=== PATIENT | female | born 1950 | race Caucasian/White ===

== ENCOUNTER → 2018-04-08 18:10 | Outpatient (REF) | payer MEDICARE, OTHER, SELFPAY | LOC: LAB 18:10 | PROVIDERS: Family Provider Family Medicine Geriatric Medicine; PCP Family Medicine Geriatric Medicine; Visit Provider Orthopaedic Surgery | DX: M17.11 Unilateral primary osteoarthritis, right knee (principal); Z53.8 Procedure and treatment not carried out for other reasons ==

== ENCOUNTER 2022-09-15 09:08 | Day surgery (SDC) | payer MEDICARE, OTHER, SELFPAY ==
[2022-09-07 09:58] VITALS: BMI 19.1
[2022-09-15] VITALS (11 sets, daily range): BP systolic 94–131; BP diastolic 53–66; PULSE 52–75; RESP 11–28; TEMP 36.2–36.7; O2SAT 15–100; BMI 19.1
[2022-09-15 09:48] LABS: COVID19 -Nasal RAPID Negative (Negative)
[2022-09-15] MEDS: CELECOXIB 200 MG CAPSULE PO (09:52)
[2022-09-15] MEDS: PREGABALIN 75 MG CAPSULE PO (09:53)
[2022-09-15] MEDS: ACETAMINOPHEN 325 MG TABLET 975 MG PO (09:53)
[2022-09-15] MEDS: VANCOMYCIN 1,000 MG/200 ML PIGGYBACK 200 MG IV (09:58)
[2022-09-15] MEDS: LACTATED RINGERS 1,000 ML 42 ML IV (10:00)
--- NOTE | 2022-09-15 10:46 | PM.PREOP ---
Pre-operative Note COVID-19 COVID-19 status: Negative Interval Note History & Physical reviewed/Exam performed by Physician: Yes Changes to H&P: No
--- NOTE | 2022-09-15 10:46 | PM.OP.1 ---
Operative Date/Time/Diagnoses Date of procedure: 09/15/22 Time of procedure: 10:46 Pre-op diagnosis: Severe right knee OA Post-op diagnosis: same Procedure & Clinicians Procedure: Right total knee arthroplasty Same procedure as scheduled: Yes Indications: The patient has had progressively worsening right knee pain with radiographic changes consistent with arthritis. Non-operative management has failed and the patient has requested total knee replacement. The risks, benefits and alternatives to surgery were discussed with the patient prior to proceeding. Risks discussed included, but were not limited to, failure to relieve pain, stiffness, infection, nerve damage, deep venous thrombosis, pulmonary embolism, stroke, coma, heart attack, permanent paralysis and , as well as the potential need for eventual revision of the prosthetic. Surgeon: Sheyla Hodgse Fiberglass Tube Molder: Mina Ortiz Anesthesia Type: Spinal Operative Notes Findings: Severe right knee osteoarthritis, adequate stability good range of motion Closure Type: primary Specimen(s): none sent Prosthetic devices, grafts, tissues, transplants, or devices: [facility] [employer] [facility] BCS 2 size 4 femur, size 3 tibia, +9 poly, 32 x 7-1/2 mm patella Estimated Blood Loss (mL): 250 Blood products transfused: none Tourniquet time (min): 64 Procedure in detail: The patient was seen in the pre-operative area, where the patient identified the right knee as the operative site and this was marked with my initials. The patient received pre-operative antibiotics, and was taken to the operating room and placed on the operative table in the supine position. After satisfactory anesthesia, a full time staff interpreter out was performed. The right leg was encircled with a tourniquet about the proximal thigh, and the leg was prepared from the toes to the tourniquet with ChloroPrep in the usual fashion and draped through sterile drapes. The leg was elevated and exsanguinated with Eschmark bandage and the tourniquet inflated to [250] mmHg pressure. The knee was approached through an approximately 18 cm incision centered over the patella and carried into the knee through a medial parapatellar arthrotomy. A portion of the medial and lateral meniscus was resected. Soft tissue was carefully mobilized around the patella the patella was measured with a caliper. Bone was resected from the patella and the patellar height was reconstituted with up an appropriate sized patellar component. A cover was then placed on the patella. A small amount of additional medial and lateral meniscus was resected. The distal femur was cut at 5?. A [+2] cut was used. It looked like an appropriate distal femoral cut and the cut was made without difficulty. An extramedullary guide was used for the tibial cut. 10 mm was resected off the least affected side.The tibia was prepared. The rotation was assessed. The patient was placed in extension residual medial and lateral meniscus as well as any residual bone was carefully resected. [No] additional tibia was resected. Hemostasis was achieved especially posteriorly. Additional local was injected into the posterior capsule. The extension gap was assessed and additional releases for gap balancing were performed as necessary. It was checked with the gap supervisor inspection department. The femoral component was trial was placed and the notch was finished. The rotation was assessed and the appropriate size femoral guide was placed on the distal femur and finishing cuts were made. There was no evidence of notching. The anterior, posterior and chamfer cuts were then made. The posterior osteophytes and soft tissues were then removed. The posterior capsule was injected with part of a mixture of 60 ml 0.25% Marcaine mixed with 20 ml Exparel for post operative pain control. The remainder of this mixture was injected into the capsule and subcutaneous tissues during cement curing. The tibial and femoral components were then placed and the knee placed through a range of motion. Range of motion was [0-130], with good stability throughout the range. The trials were then removed, and the tibia was finished. The bone was prepared with pulsatile lavage, and dried with a sponge. Cement was applied and the final prosthetics placed. Excess cement was removed during and after cement curing. A brief Betadine soak was performed. After confirming there was no extruded cement posteriorly, the final tibial insert was placed. The knee was copiously irrigated and the tourniquet deflated. Hemostasis was obtained with the bovie. A drain was placed and brought out superolaterally. The capsule was closed with interrupted nonabsorbable suture. The subcutaneous layer was closed with barbed sutures, and the skin with a running 3-0 V-Lock suture and Surgical glue. An Aquacel Ag dressing was applied and the patient was taken to recovery having tolerated the procedure well. Complications: none Post-operative Condition: stable Disposition: Acute Care Plan for aftercare: The patient will be maintained on a standard total knee replacement protocol with weight bearing as tolerated. The patient will receive aspirin and sequential compression devices for DVT prophylaxis. The patient will be discharged home when safe for the home environment.
[2022-09-15] MEDS: CEFAZOLIN 2 GM/100 ML PREMIX 100 ML IV ×2 (10:54→20:08)
[2022-09-15] MEDS: TRANEXAMIC ACID 1,000 MG VIAL 1000 MG INJ ×2 (11:11→12:35)
--- NOTE | 2022-09-15 11:30 | DI.RAD.S_ITS ---
PROCEDURE: XR KNEE RT 1TO2V INDICATIONS: RIGHT TOTAL KNEE TECHNIQUE: 2 view(s) of the knee acquired. COMPARISON: None. FINDINGS: Bones: Patient is status post knee joint arthroplasty. Hardware components are in expected positions. Visualized bony structures are intact. Soft tissues: Overlying postoperative changes are noted. IMPRESSION: Expected postsurgical change for right knee arthroplasty. Dictated by: Portia Starks MD, PhD on 09/15/2022 at 13:58 Approved by: Portia Starks MD, PhD on 09/15/2022 at 13:59
--- NOTE | 2022-09-15 11:30 | SUR.OPER ---
Supine on padded OR bed. Pillow under head, arms secured on padded armboards <90 degree abduction. Safety belt across torso. Non-operative leg secured with tape over blanket over lower leg. Operative leg secured in DeMayo positioner. Foam padded brace at thigh of operative leg.
[2022-09-15] MEDS: BUPIVACAINE LIPOSOME 266 MG/20 ML VIAL INJ (11:36)
[2022-09-15] MEDS: SODIUM CHLORIDE IRRIG SOLUTION 250 ML, POVIDONE-IODINE SPONGE STICKS 1 APPLIC IRR (11:36)
[2022-09-15] MEDS: BUPIVACAINE 0.5% W/ EPI (PF) 30 ML VIAL INJ (11:38)
[2022-09-15] MEDS: ONDANSETRON 4 MG/2 ML INJ IV (13:04)
[2022-09-15] MEDS: OXYCODONE IR 5 MG TABLET PO (13:04)
[2022-09-15] MEDS: LACTATED RINGERS 1,000 ML 100 ML IV (14:03)
[2022-09-15] MEDS: IBUPROFEN 400 MG TABLET PO ×3 (14:03→20:08)
--- NOTE | 2022-09-15 14:32 | PC.NURSE ---
Addendum entered by Ailyn Wright R.N. 09/15/22 14:45: Bed alarm on for safety. Pt aware she must call for assistance as needed and to not get up without assistance. Original Note: Pt to room 219 via bed from PACU. Pt is awake, alert, and oriented x 4. O2 sat 99% on RA and continuous pulse ox in place (Pt has Raynauds and has trouble with the sensor at times.) Pt states pain is 3/10 to right knee - had just received pain meds prior to transport up from PACU. SCD's on and running, IVF infusing as ordered, ice pack in place under knee. Oriented Pt to room, call light, bed controls, and tv controls.
[2022-09-15] MEDS: ACETAMINOPHEN 325 MG TABLET 650 MG PO (17:14)
[2022-09-15] MEDS: ASPIRIN EC 81 MG TABLET PO (20:08)
[2022-09-15] MEDS: DOCUSATE 100 MG CAPSULE PO (20:08)
[2022-09-16] VITALS: BP 99/51; PULSE 61; RESP 12; TEMP 37; O2SAT 97
[2022-09-16] MEDS: ACETAMINOPHEN 325 MG TABLET 650 MG PO ×2 (00:03→05:32)
[2022-09-16] MEDS: IBUPROFEN 400 MG TABLET PO ×3 (00:03→08:40)
[2022-09-16] MEDS: LACTATED RINGERS 1,000 ML 100 ML IV (03:05)
[2022-09-16] MEDS: CEFAZOLIN 2 GM/100 ML PREMIX 100 ML IV (03:05)
[2022-09-16 03:10] VITALS: BP 103/52; PULSE 64; RESP 18; TEMP 36.9; O2SAT 97
[2022-09-16 06:16] LABS: Hematocrit 29.1 % (36-46); Hemoglobin 9.8 g/dL (12.0-16.0)
--- NOTE | 2022-09-16 07:49 | P.DS_ITS ---
History of Present Illness History of Present Illness Date Patient Seen: 09/16/22 Time Patient Seen: 07:49 Chief complaint: Knee pain Narrative: Patient's knee pain is been [id number]. Denies fever or chills. No nausea or vomiting. Patient has her home to assist her. Discharge Providers Provider Discharge Date: 09/16/22 Primary care physician: Darnell Spears MD Consults: 09/15/22 08:01 Consult to Anesthesiology Routine Comment: Consulting Provider: Anesthesiologist Reason for consultation: Regional block for post operative pain control 09/15/22 13:17 Consult to Discharge Planning Routine Comment: Consult to Physical Therapy Evaluate & Treat Comment: Physician Instructions: postop TKA protocol Consult to Respiratory Therapy Evaluate & Treat Comment: Physician Instructions: Evaluate and treat Discharge provider: Mina Ortiz PA-C Summary Hospital Course Discharge Diagnosis: Severe right knee osteoarthritis Hospital Course: Right total knee arthroplasty Same procedure as scheduled: Yes Indications: The patient has had progressively worsening right knee pain with radiographic changes consistent with arthritis. Non-operative management has failed and the patient has requested total knee replacement. The risks, benefits and alternatives to surgery were discussed with the patient prior to proceeding. Risks discussed included, but were not limited to, failure to relieve pain, stiffness, infection, nerve damage, deep venous thrombosis, pulmonary embolism, stroke, coma, heart attack, permanent paralysis and , as well as the potential need for eventual revision of the prosthetic. Surgeon: Sheyla Hodges Quarrying Specialist: Mina Ortiz Anesthesia Type: Spinal Operative Notes Findings: Severe right knee osteoarthritis, adequate stability good range of motion Closure Type: primary Specimen(s): none sent Prosthetic devices, grafts, tissues, transplants, or devices: [employer] BCS 2 size 4 femur, size 3 tibia, +9 poly, 32 x 7-1/2 mm patella Estimated Blood Loss (mL): 250 Blood products transfused: none Tourniquet time (min): 64 Patient admitted to the hospital for right total knee arthroplasty. Patient consented to the same. Patient underwent right total knee arthroplasty on 2021. Patient back in her room recovering well as in stable condition. Patient will be discharged home today in stable condition. Status at Discharge Cognitive/behavioral status at discharge: at baseline, oriented Functional status at discharge: uses cane/walker Overall status at discharge: patient is progressing back to baseline Time Spent with Patient Time spent: Less than 30 minutes Exam Vital Signs (past 8 hours): - 09/16/22 00:00 09/16/22 03:10 Temperature 98.6 F 98.4 F Pulse Rate 61 64 Respiratory Rate 12 18 Blood Pressure 99/51 L 103/52 L Pulse Oximetry 97 97 Oxygen Flow Rate 0 0 Oxygen Delivery Method Room Air Oxygen Flow Rate 0 Narrative Exam Narrative: 72-year-old female resting comfortably in bed in no apparent distress. Right knee dressing is clean, dry and intact. Motor functions intact right lower extremity. Sensation grossly intact to light touch right lower extremity. Const General: cooperative, healthy appearing and comfortable Nutritional Appearance: average body habitus Orientation: alert HENMT Head: normal to inspection Resp Effort & Inspection: normal respiratory effort and able to speak in complete sentences Objective Labs Result Diagrams: 09/16/22 05:48 Labs: Laboratory Results - last 24 hr 09/15/22 09/16/22 09:15 05:48 Hgb 9.8 L Hct 29.1 L SARS-CoV-2 (PCR) Negative [facility] Medical History Anxiety Elevated cholesterol Osteoarthritis Raynaud's disease Vertigo Surgical History Hx of arthroscopy of right knee Hx of oral surgery (2006) Hx of removal of cyst Hx of removal of cyst Social History household members: spouse Smoking Status: Former smoker alcohol intake: former Discharge Assessment & Plan Assessment and Plan Assessment: Patient progressing as expected status post right total knee arthroplasty Plan of Treatment: Mobilize with physical therapy Multimodal pain management Discharge home today in stable condition Discharge Plan Discharge Plan Patient Disposition: Home Discharge orders & Medications Discharge Orders: Discharge (Order); Ordered 09/16/22 Ordered By: Mina Ortiz Prescriptions: New acetaminophen 325 mg Tablet 650 mg PO Q6HR Qty: 60 0RF polyethylene glycol 3350 17 gram Powder In Packet 17 gm PO DAILY PRN (Reason: Constipation) Qty: 20 0RF aspirin 81 mg Tablet,Delayed Release (Dr/Ec) 81 mg PO BID Qty: 60 0RF ibuprofen 400 mg Tablet 400 mg PO Q4HR Qty: 60 0RF oxycodone 5 mg Tablet 5 mg PO Q3HR PRN (Reason: Pain, Moderate (4-6)) Qty: 60 0RF Discontinued ibuprofen 200 mg Tablet 200 mg PO BID PRN (Reason: Pain) Follow up/Referrals: Darnell Spears MD [Primary Care Provider] - Sheyla Hodges MD [Physician] - (2 weeks) Diet/Activity/Treatments Diet: Diet as Tolerated Activity: Weight-bearing as tolerated Cold/Heat Therapy: Apply ice to knee as needed Skin/Wound/Dressing Care Report to your healthcare provider any signs of infection, such as:: chills, fever, night sweats, increased pain, unusual drainage and unusual redness Dressing: Keep dressing clean and dry, may shower Visit Report/Discharge Packet Instructions: DI for Knee Replacement Stand Alone Forms: Surgery Discharge Discharge Data Primary Care Provider: Darnell Spears Attending Provider: Sheyla Hodges Quality VTE Deep Vein Thrombosis/Pulmonary Embolism Present on Admission: No
[2022-09-16 08:05] VITALS: BP 114/44; PULSE 50; RESP 15; TEMP 36.9; O2SAT 98
--- NOTE | 2022-09-16 08:38 | CM.DANOTE ---
DCP Assessment: Payor confirmed: Medicare & [facility] PPO PCP confirmed: Darnell Spears MD Pt is a 72 y.o. F who presented to the hospital for a scheduled R TKA. Pt brought up to AC unit for further management and evaluation of surgical procedure. DCP met with pt this morning to discuss discharge needs. Pt sitting up in chair eating breakfast. DCP introduced herself and role. Pt states she lives in [place] with her spouse, Bucky, in a house with many steps. Pt states that she has set up a respit room at an assisted living facility on Wednesday while she recovers from surgery. Pt states that she will have 24/7 assistance and a button she can push if she needs something. Pt states that her spouse is 14 years older than her and unable to fully assisted her at home. Pt states that she is normally active at baseline and still does pilates classes. Pt drives POV normally and denies DME use. Pt aware she needs to work with PT upon discharge. Pt states [place]. Pt denies any resources or needs at this time. White board was updated. Pt thankful for discussion. P: Pt to work with PT this morning and if cleared, pt to discharge home to [facility] via spouse POV. Megan Salvador RN/DAWSON Discharge Planning/Care Management Advanced directive, confirm from FAMILY Start: 09/15/22 13:54 Freq: Q24H Status: Active Protocol: Document 09/15/22 13:54 CM (Rec: 09/15/22 13:58 CM [id number]) Advance Directive, confirm on record Time 13:58 Person contacted Pt Copy received No CM Discharge Assessment Start: 09/16/22 08:36 Freq: Status: Active Protocol: Document 09/16/22 08:37 AJ (Rec: 09/16/22 08:37 AJ [id number]) Discharge Planning Assessment Assigned Aviation Safety Inspector Megan Salvador RN/DAWSON Advance Directives? Yes Advance Directives on File No History Provided By Patient Prior Living Arrangements House Household Members spouse Type of transporation used prior to Drives own vehicle admit Independent with ADL's Yes Is patient alert and oriented? Yes Discharge Plan Assisted Living Facility Transportation Arrangement Spouse POV and then ferry. Referrals Initiated None needed Whiteboard Updated in Patient Room with Yes name and ext. # of Aviation Safety Inspector Comment Instructed to call if needed. Review Status In Process Please Provide Date Initial DC 09/16/22 Assessment Was Performed Next Review Type Continued Stay Review Pre-Anesthesia Assessment Start: 09/07/22 09:58 Freq: Status: Active Protocol: Document 09/07/22 09:58 CAB (Rec: 09/07/22 10:28 CAB [id number]) Pre-Anesthesia Assessment Preferred Name Dot Patient Information Reviewed Via Phone Assessment Assessment Completed With Patient Comment Labs/ECG done w/PCP per pt, not here, COVID screen @ [facility] 09/14/22 Primary Care Provider Darnell Spears Seen Specialist in Last 12 Months Yes Specialist Seen ENT,Orthopedist Primary Language Korean Paralegals Required No Height 154.94 cm Weight 45.813 kg Body Mass Index (BMI) 19.1 Hearing Ability Normal Visual Assist Contacts,Glasses Dentition Type Teeth, Natural Present Barriers to Learning None Hx Anesthesia Reactions Yes: Versed reacton Hx Family Anesthesia Reaction No Hx Malignant Hyperthermia No Hx Blood Transfusions No Anesthesia Review Requested No alcohol intake former Smoking Status Former smoker how long ago did patient quit smoking Quit 1988 Substance Use Type does not use Pain Present Pain Reported Musculoskeletal Symptoms Joint Pain History of Falling (Recent or History of Yes ) Comment Over 2 years ago r/t vertigo Patient is completely paralyzed or No completely immobile Mental Status Oriented to own ability Is patient on oxygen? No Does patient have BENITEZ/SOB No Hx Sleep Apnea No Currently Taking a Beta Radha No Hx Chest Pain No Hx SOB No Hx Syncope or Dizziness Yes: Dizziness r/t Vertigo Anti-Coagulant Therapy No Has a Circulation Representative No Cardiac Testing No Hx Pacemaker/ICD No Pacemaker Rep Required? No Cardiac Clearance Received Not Applicable Diet Type At Home Regular Dysphagia No Gastrointestinal Symptoms None Chronic UTI No Urinary Catheter Present No Hx Urinary Self Catheterization No Diabetes No Patient No Lactating No Hx Drug Resistant Organism Yes: C-diff approx 15 years ago Presence of External or Internal Medical No Devices Have you had any close contact with No someone diagnosed with COVID-19? Received a COVID vaccine? Yes Received all doses? Yes Marital Status Lives With spouse Current Living Arrangements House Number of Floors (Floors) Two Floors Support System Spouse Does the Patient Have Assistance After Yes: has some physical Surgery issues with weakness Patient Discharge Plan Description Other Comment Pt plans to go [place] at the [place] [facility] Additional comment Lives on [facility] Feels Safe in Current Environment Yes Been Physically Hurt or Threatened By a No Person in Current Environment Do you have thoughts of harming yourself None or others? Are you currently considering suicide? No Do you have a plan to hurt yourself or No Plan others? Do You Have Any Spiritual Beliefs That No May Affect Your HC Choices? Do You Have Any Cultural Practices That No May Affect Your HC Choices? Comment Adventism Who Can We Speak to About Patient's Care Family, friends Identifying Code for Release of Patient Declines to issue Information Health Care Proxy/Next of Kin Devang () Health Care Proxy or cell:[phone] Emergency Contact Name Devang () Emergency Contact or cell: Advance Directives? Yes Advance Directives on File No Requested Patient Bring Advanced Yes Directives DOS Power of Verification Manager Yes Power of Verification Manager Name Devang () Power of Verification Manager or cell: PAC Instructions Do not shave/clip surgical site,Durable medical equipment ,Medications to take/avoid, Nasal antibiotic,No ETOH/ petroleum product on skin DOS, NPO,Pre-surgical wash,Sensory aids,Sturdy shoes/comfortable clothes,Do not bring valuables and remove jewelry
[2022-09-16] MEDS: ASPIRIN EC 81 MG TABLET PO (08:41)
[2022-09-16] MEDS: DOCUSATE 100 MG CAPSULE PO (08:41)
--- NOTE | 2022-09-16 10:03 | PT.IIE ---
Current Diagnoses Unilateral primary osteoarthritis, right knee (09/15/22) Surgery Performed Operation Date: 09/15/22 11:15 Actual Procedures p Total Knee Arthroplasty(Right) - Sheyla Hodges MD Surgical History (Last Reviewed 09/16/22 @ 07:52 by Mina Ortiz PA-C) Hx of arthroscopy of right knee Hx of oral surgery (2006) Hx of removal of cyst Hx of removal of cyst Medical History (Last Reviewed 09/16/22 @ 07:52 by Mina Ortiz PA-C) Anxiety Elevated cholesterol Osteoarthritis Raynaud's disease Vertigo Physical Therapy Inpatient Evaluation/Re-Eval M1 PT/OT-IP Prior Functional Status Start: 09/16/22 12:51 Freq: NEEDED Status: Active Protocol: Document 09/16/22 10:03 AB (Rec: 09/16/22 13:01 AB [id number]) Medical Review Prior Functional Status Medical History Reviewed Yes Communication able to make needs known Mobility and Gait pt stated that she is independent with all mobiltiies and ambulation without AD Social History Household Members spouse Living Arrangements House Number of Floors (Floors) One Floor Number of Stairs To Enter/Railing? pt plans to [facility] ~ 2 weeks upon d/c since her own house has a lot of stairs that she has to maneuver. Home set up info is regarding [facility]: no steps to enter Home Environment High Toilet,Walk in Shower Home Equipment Front Wheel Walker,Straight Cane,Shower Seat with Backrest ,Hand Held Shower,Grab Bars Near Toilet,Grab Bars In Shower Additional Social History Comment has an adjustable bed pt's spouse will come in/out of [facility] to assist pt but will have staff to assist as well if needed. M2 PT-IP Current Condition Start: 09/16/22 12:51 Freq: NEEDED Status: Active Protocol: Document 09/16/22 10:03 AB (Rec: 09/16/22 13:01 AB [id number]) Physical Therapy Current Condition Current Condition Evaluation Date 09/16/22 Treatment Diagnosis s/p R TKA; difficulty in walking Onset Date 09/15/22 M3 PT-IP Subjective Start: 09/16/22 12:51 Freq: NEEDED Status: Active Protocol: Document 09/16/22 10:03 AB (Rec: 09/16/22 13:01 [id number]) Subjective Physical Therapy Visit Type Type Initial Evaluation Visit Start Time 10:03 Visit Stop Time 10:35 Total Visit Minutes 32 Number of REFRIGERATION PERSON Visits 0 Physical Therapy Visit Comments Patient Comments agreeable to do PT Therapy Pain Assessment Pain When Pain Assessed At Rest Pain Present Pain Present Pain Reported Location knee Intensity 2 Scale Used 2.5/10 with mobility Pain Management Techniques Distraction,Elevation, Modification of Treatment,Re- positioning,Timing of Activity with Medications M4 PT-IP Mobility and Gait Start: 09/16/22 12:51 Freq: NEEDED Status: Active Protocol: Document 09/16/22 10:03 AB (Rec: 09/16/22 13:01 AB [id number]) PT-Bed Mobility Assessment Supine to Sit Supine to Sit Standby Assistance Sit to Supine Sit to Supine Standby Assistance PT-Transfer Assessment Sit to and From Stand Sit to and from Stand Standby Assistance,1 Person Assistance,Use of Upper Extremities Equipment Transfer Assistive Device Gait Belt,Front Wheeled Walker Orthotic/Prosthetic Devices or Brace: No Transfers Transfer Destination Bed,Chair Transfer Technique ambulated Transfer Ability Level of Assist Standby Assistance,1 Person Assistance,Use of Upper Extremities Comments Mobility Comments completed sit to stand from chair SBA and ambulated in room ~ 30 ft using FWW SBA. completed bed mobiltiy sit<> supine SBA. agreed to walk more and ambulated in the hallway using FWW ~ 100 ft SBA . ambulated back to her room and sat on chair. positioned on chair. call light and table placed within reach. pt and spouse without any further concerns. reviewed handout/post-op folder with pt . Gait Assessment Gait Gait Assistance Required: Standby Assistance Distance (Feet) 100 Able to Maintain Weight Bearing Status Yes During Gait Assistive Devices Assistive Device Gait Belt,Front Wheeled Walker Orthotic/Prosthetic Devices or Brace: No Gait Deviations General Gait Pattern Decreased Stride Length, Decreased Feet Clearance,Step- to Gait Factors Limiting Gait Function Factors Limiting Gait Function Decreased Activity Tolerance, Decreased Strength,Limited Range of Motion,Pain,Poor Balance PT-Balance Assessment Sitting Balance and Reactions Static Sitting Balance Ability Normal Dynamic Sitting Balance Ability Normal Standing Balance and Reactions Static Standing Balance Ability Good Dynamic Standing Balance Ability Fair Device Used FWW M5 PT-IP Objective Assessments Start: 09/16/22 12:51 Freq: NEEDED Status: Active Protocol: Document 09/16/22 10:03 AB (Rec: 09/16/22 13:01 AB [id number]) Orientation Orientation/Cognition Level of Alertness Alert Orientation Name,Place,Situation Language Function Ability No Deficits Noted Safety Awareness Understands Safety Issues Memory Description No Deficits Noted Strength Lower Extremity Strength Assessment Right Impaired Knee 4-/5 Coordination Assessment Gross Coordination Gross Coordination WNL Sensation Assessment Sensation Gross Sensation WNL Muscle Tone Muscle Tone WNL Yes M6 PT-IP Treatment Start: 09/16/22 12:51 Freq: NEEDED Status: Active Protocol: Document 09/16/22 10:03 AB (Rec: 09/16/22 13:01 AB [id number]) Physical Therapy Treatment Education Education Provided Precautions,Weight Bearing Status,Post-Op Packet,Safety M7 PT-IP Assessment and Plan Start: 09/16/22 12:51 Freq: NEEDED Status: Active Protocol: Document 09/16/22 10:03 AB (Rec: 09/16/22 13:01 AB [id number]) PT Summary Assessment and Plan Potential Rehabilitation Potential Good Status of Condition at Evaluation Stable Summary Impairments Pain,ROM,Strength,Balance, Coordination,Sensation,Tone, Cognition,Bed Mobility, Transfers,Gait,Activity Tolerance Assessment Summary pt requiring SBA with mobility using FWW. pt plans to go to an [facility] for respite care for ~ 2 weeks and will go home afterwards. Spouse will assist pt at [facility] but will not stay with pt but will have [facility] staff assist her if needed. pt may go home when medically stable. Goals Bed Mobility Goal Independent Transfer Goal Independent,Front Wheeled Walker Gait Goal Independent,Front Wheel Walker Gait Distance 200 Days to Meet Goals 5 Frequency of Treatment Frequency Of Treatment Twice a Day Treatment Plan Physical Therapy Treatment Plan Bed Mobility Training,Transfer Training,Gait Training, Therapeutic Exercise,Balance Retraining,Post Op Education, Discharge Planning,Hot or Cold Pack,Neuromuscular Re-ed, Coordination Retraining,Manual Therapy Weight Bearing Status Weight Bearing Status Weight Bear as Tolerated Allowed Weight Bearing Amount (enter % RLE WBAT or #) (%) Recommendations To Nursing Amount of Assist Needed Standby Assistance Discharge Recommendations PT Discharge Recommendations Home with Assistance, Outpatient PT Transportation Needs at Discharge Private Vehicle
== END 2022-09-16 11:00 | disposition home or self-care (01) ==
LOC: OR 09:12 → AC 09:12
PROVIDERS: Family Provider Family Medicine Geriatric Medicine; PCP Family Medicine; Referring Provider Orthopaedic Surgery; Visit Provider Orthopaedic Surgery
PROC: 0SRC0JZ Replacement of Right Knee Joint with Synthetic Substitute, Open Approach (ICD-10-PCS; CPT 27447; principal; 2022-09-15 11:15)
DX: M17.11 Unilateral primary osteoarthritis, right knee (principal); E78.00 Pure hypercholesterolemia, unspecified
CPT/HCPCS: 27447; 36415; 73560; 85014; 85018; 87635; 97161; C1776; C1713; C9290; J0690; J1100; J2405; J2704; J3010

== ENCOUNTER → 2023-12-14 15:12 | Outpatient (CLI) | payer MEDICARE, OTHER, SELFPAY ==
[2022-09-15 19:36] VITALS: BMI 19.1
--- NOTE | 2023-12-14 15:15 | DI.MRI.S_ITS ---
PROCEDURE: MR HAND LT WO/W CON INDICATIONS: Arthropathy, unspecified TECHNIQUE: Coronal and axial T1 spin echo and T2 fast spin echo with fat saturation. Post-contrast coronal and axial T1 spin echo with fat saturation images through the left hand and wrist. COMPARISON: [facility], CR, XR HAND 3+ VIEWS BILATERAL, 12/01/2023, 9:59. FINDINGS: Image quality: Excellent. Bones and cartilage: Alignment of left hand and wrist is anatomic. Mild joint space narrowing throughout left hand and wrist joints are seen. There is subtle T2 hyperintense signal involving volar aspect of 3rd metacarpal head and show subtle contrast enhancement. Similar subtle T2 hyperintense signal involving ulnar aspect of 5th metacarpal head with subtle contrast enhancement is also seen nonspecific subcortical T2 hyperintense signal involving dorsal aspect of proximal triquetrum with subtle contrast enhancement. Similar areas of signal abnormality involving ulnar aspect of lunate is also seen. Synovium: Small amount of joint fluid distending 2nd through 5th MCP joint capsule. No abnormal synovial thickening or enhancement is seen. No abnormal fluid distending flexor or extensor tendon sheath is noted to suggest tenosynovitis. Soft tissues: No enhancing soft tissue mass or drainable fluid collection. No abnormal intramuscular enhancement is seen. IMPRESSION: 1. Finding is concerning for subtle erosion secondary to inflammatory arthropathy involving left 3rd and 5th metacarpal heads and possibly lunate and proximal triquetrum as above. Mild left hand and wrist joint space narrowing. No other area of abnormal enhancement or erosion. 2. No evidence of synovitis or tenosynovitis. Extensor and flexor tendons are intact. 3. No enhancing soft tissue mass or drainable fluid collection. Dictated by: Bay Rainey M.D. on 12/15/2023 at 9:52 Approved by: Bay Rainey M.D. on 12/15/2023 at 10:03
--- NOTE | 2023-12-14 16:02 | DI.MRI.S_ITS ---
PROCEDURE: MR HAND RT WO/W CON INDICATIONS: ARTHROPATHY. RIGHT HAND PAIN TECHNIQUE: Coronal and axial T1 spin echo and T2 fast spin echo with fat saturation. Post-contrast coronal and axial T1 spin echo with fat saturation images through the right hand and wrist. COMPARISON: [facility], CR, XR HAND 3+ VIEWS BILATERAL, 12/01/2023, 9:59. FINDINGS: Image quality: Excellent. Bones and cartilage: Slight ulnar deviation at 2nd MCP joint is seen. No acute fracture or dislocation. [id number] right hand and wrist joint osteoarthritic changes are seen with joint space narrowing and subchondral sclerosis more notably at 1st CMC joint. Subcortical T2 hyperintense signal involving volar aspect of proximal capitate and show mild contrast enhancement concerning for subtle erosive changes. Synovium: Small amount of fluid within 1st through 5th MCP joint is seen. No abnormal synovial thickening or enhancement. No fluid distension of extensor or flexor tendon sheaths to suggest tenosynovitis. Soft tissues: No soft tissue mass or drainable fluid collection. Suggestion of small ganglion cyst over radial aspect of 3rd metacarpal head measures 5 millimeter in size. IMPRESSION: 1. [id number] right hand and wrist joint osteoarthritis more notably involving 1st CMC joint. No fracture or dislocation. 2. Subtle subcortical T2 hyperintense signal involving volar aspect of proximal capitate and show mild contrast enhancement concerning for subtle erosive changes. No definite erosion involving metacarpal heads are seen. 3. No evidence of tenosynovitis or synovitis. No enhancing soft tissue mass or drainable fluid collection. Possible small ganglion cyst over radial aspect of 3rd metacarpal head/neck measures 5 millimeter in size. Dictated by: Bay Rainey M.D. on 12/15/2023 at 10:03 Approved by: Bay Rainey M.D. on 12/15/2023 at 10:20
== END ==
PROVIDERS: Family Provider Family Medicine Geriatric Medicine; PCP Family Medicine; Referring Provider Internal Medicine Rheumatology; Visit Provider Internal Medicine Rheumatology
DX: M12.9 Arthropathy, unspecified (principal)
CPT/HCPCS: 73220; A9579